=== PATIENT | female | born 1990 | race Native Hawaiian/Other Pacific Islander ===

== ENCOUNTER 2020-07-19 12:04 | Outpatient (CLI) | payer OTHER ==
[2020-07-19 12:24] LABS: PLATELET COUNT 263 K/uL (152-353)
[2020-07-19 12:52] LABS: POTASSIUM 3.8 mmol/L (3.6-5.2)
== END 2020-07-19 22:06 | disposition home or self-care (01) ==
LOC: LAB 12:04
PROVIDERS: ATTEND Family Medicine
DX: F41.9 Anxiety disorder, unspecified (principal); G47.00 Insomnia, unspecified; R79.89 Other specified abnormal findings of blood chemistry; E78.2 Mixed hyperlipidemia
CPT/HCPCS: 36415; 80053; 80061; 81000; 84439; 84443; 85027